=== PATIENT | male | born 2000 | race Caucasian/White ===

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

== ENCOUNTER → 2022-01-12 | Outpatient (CLI) | payer OTHER, SELFPAY | END | disposition home or self-care (01) | PROVIDERS: PCP Family Medicine; Visit Provider Internal Medicine Gastroenterology | DX: K51.90 Ulcerative colitis, unspecified, without complications (principal) | CPT/HCPCS: 36415 ==

== ENCOUNTER → 2025-03-04 | Outpatient (CLI) | payer BC, SELFPAY ==
[2025-03-04 09:47] LABS: Hematocrit 43.9 % (40-54); Hemoglobin 14.7 g/dL (13.0-16.5); Immature Granulocytes Count 0.010 X10^3/uL (0.0-0.0); Mean Corp Hgb Conc 33.5 g/dL (32-36); Mean Corpuscular Volume 92.6 fL (80-94); Mean Platelet Vol. 10.2 fl (6.2-12.0); NRBC Flagged by Analyzer 0 % (0-5); Platelet Count 325 K/mm3 (150-450); RBC Distribution Width CV 12.6 % (11.6-14.6); RBC Distribution Width SD 43.0 fl (35.1-43.9); Red Blood Count 4.74 M/mm3 (4.6-6.2); White Blood Count 6.5 K/mm3 (4.4-11.0)
[2025-03-04 11:02] LABS: AST(SGOT) 16 U/L (<=37); Alanine Aminotransfer ALT/SGPT 13 U/L (<=46); Albumin, Serum 4.5 g/dL (3.5-5.0); Alkaline Phosphatase 96 U/L (40-129); Anion Gap 11 (5-15); BUN 19 mg/dL (4-19); BUN/Creat Ratio 17.3 RATIO (10-20); Calcium,Total 9.4 mg/dL (7.6-11.0); Carbon Dioxide 26.3 mmol/L (21.0-32.0); Chloride 105 mmol/L (98-108); Globulin 2.2 g/dL (2.2-4.2); Glucose 96 mg/dL (70-99); Potassium 4.3 mmol/L (3.3-5.1)
[2025-03-04 11:04] LABS: CRP < 3.00 mg/L (0.0-3.0)
[2025-03-05 12:08] LABS: Anti-Chromatin <0.2 AI (0.0-0.9); Anti-Jo <0.2 AI (0.0-0.9); Anti-dsDNA Ab <1 IU/mL (0-9); SJOGREN'S Anti-SS-A test < 0.2 AI (0.0-0.9); SJOGREN'S Anti-SS-B test < 0.2 AI (0.0-0.9)
== END | disposition home or self-care (01) ==
LOC: LAB 09:05
PROVIDERS: PCP Family Medicine; Referring Provider Student in an Organized Health Care Education/Training Program; Visit Provider Student in an Organized Health Care Education/Training Program
DX: K51.90 Ulcerative colitis, unspecified, without complications (principal); M25.50 Pain in unspecified joint
CPT/HCPCS: 36415; 80053; 85025; 85652; 86140; 86225; 86235

== ENCOUNTER 2025-06-29 11:16 | Day surgery (SDC) | payer BC, MEDICAID, SELFPAY ==
[2025-06-29] VITALS (8 sets, daily range): BP systolic 110–133; BP diastolic 53–70; PULSE 57–78; RESP 14–16; TEMP 36.2–36.6; O2SAT 97–100; BMI 20.9
--- OUTSIDE RECORDS SUMMARY | 2025-06-29 11:39 | XMS RPT_ITS | CCD ---
Author Organization [facility] Care Team Providers Care Supervisor Liquid Yeast Name Role Phone Dr. Jignesh Price Primary Care Provider [phone] Dr. Jignseh Price Referring Provider [phone] Dr. Jesse Gonzalez Attending Provider [phone] Diaz PLANT MAINTENANCE ENGINEER, PLANT MAINTENANCE ENGINEER-C Joan Castillo Attending Provider [phone] Dr. Jignesh Price DO Primary Care Provider [phone] Dr. Jignesh Price DO Referring Provider Nori Aguilera Attending Provider [phone] Nori Aguilera Referring Provider [phone] Jginesh Price Referring Unavailable Jesse Gonzalez Attending Unavailable Jignesh Price Primary Care Unavailable Jignesh Price Primary Care Unavailable Nori Munson Attending Unavailable Nori Munson Referring Unavailable Jignesh Price Primary Care Unavailable Jignesh Price Referring Unavailable Nori Munson Attending Unavailable Medications Current Medications Medication Drug Class(es) Dates Sig (Normalized) Sig (Original) azaTHIOprine 50 mg oral tablet (9 sources) Purine Antimetabolite Start: 08-25-2021 take 150 mg by mouth once daily Azathioprine Active 150 MG PO DAILY 300 August 25, 2021 2:25pm Start: 08-25-2021 End: 09-13-2022 take 1 tablet by mouth once daily Azathioprine 50 mg tablet Discontinued 150 mg PO DAILY 300 1 August 25, 2021 1:00am September 13, 2022 10:32am Start: 04-26-2021 End: 08-25-2021 take 1 tablet by mouth once daily Azathioprine 100 mg tablet Discontinued 100 mg PO DAILY 30 2 May 08, 2021 4:28pm August 25, 2021 2:31pm dicyclomine hydrochloride 20 mg oral tablet (5 sources) Anticholinergic Start: 06-20-2021 End: 10-27-2021 take 1 tablet by mouth three times daily Dicyclomine 20 mg tablet Active 20 mg PO THREE TIMES A DAY 90 3 October 27, 2021 1:33pm FLUoxetine 20 mg oral capsule (5 sources) Serotonin Reuptake Inhibitor Start: 09-13-2022 take 1 capsule by mouth once daily Fluoxetine 20 mg capsule Active 20 mg PO DAILY September 13, 2022 10:33am Start: 04-21-2021 take 40 mg by mouth once daily Fluoxetine Active 40 MG PO DAILY April 21, 2021 8:07am Start: 04-21-2021 End: 09-13-2022 take 2 capsules by mouth once daily Fluoxetine 20 mg capsule Discontinued 40 mg PO DAILY April 21, 2021 12:00am September 13, 2022 10:40am Lactobac 2-Bifido 1-S. Therm (Vsl#3) 112.5 billion cell capsule (3 sources) Start: 04-21-2021 Lactobac 2-Bif kiran 1-S. Therm (Vsl#3) 112.5 billion cell capsule Active 1 CAP PO TWICE A DAY 60 April 21, 2021 9:11am Start: 04-21-2021 End: 09-13-2022 Lactobac 2-Bifido 1-S. Therm (Vsl#3) 112.5 billion cell capsule Discontinued 1 NMA PO TWICE A DAY 60 0 April 21, 2021 12:00am September 13, 2022 10:33am Completed/Discontinued Medications Medication Drug Class(es) Dates Sig (Normalized) Sig (Original) colestipol hydrochloride 1000 mg oral tablet (3 sources) Bile Acid Sequestrant Start: 09-08-2020 End: 04-21-2021 take 1 tablet by mouth once daily Colestipol 1 GM tablet Discontinued 1 g PO DAILY September 08, 2020 1:00am April 21, 2021 8:36am fluconazole 200 mg oral tablet (2 sources) Azole Antifungal Start: 03-30-2022 End: 04-13-2022 take 1 tablet by mouth twice daily Fluconazole 200 mg tablet Discontinued 200 mg PO TWICE A DAY 28 14 0 March 30, 2022 12:00am April 12, 2022 12:00am April 13, 2022 12:03am hyoscyamine sulfate 0.125 mg oral tablet (2 sources) Start: 01-05-2022 End: 09-13-2022 Hyoscyamine Sulfate (Levsin) 0.125 mg tablet Discontinued 0.125 mg PO 2 to 4 times per day as needed for dyspepsia 90 5 January 05, 2022 12:00am September 13, 2022 10:32am inFLIXimab-dyyb 100 mg injection (7 sources) Tumor Necrosis Factor Yazmin Start: 01-23-2022 End: 03-22-2022 Infliximab-Dyyb (Inflectra) 100 mg recon soln Discontinued 395 mg .ROUTE .COMPLEX 1 11 January 24, 2022 9:56am March 22, 2022 12:52pm 395 mg q4wks; 5 mg/kg IV q4 wks Start: 08-22-2021 End: 01-23-2022 Infliximab-Dyyb (Inflectra) 100 mg recon soln Discontinued mg .Route August 22, 2021 1:00am January 23, 2022 1:59pm 5 mg/kg IV q8 wks omeprazole 40 mg delayed release oral capsule (3 sources) Proton Pump Inhibitor Start: 09-06-2020 End: 04-21-2021 take 1 capsule by mouth once daily Omeprazole 40 mg capsule,delayed release(DR/EC) Discontinued 40 mg PO DAILY 60 0 September 06, 2020 1:00am April 21, 2021 8:37am predniSONE 10 mg oral tablet (18 sources) Start: 07-28-2021 End: 09-13-2022 take 1 tablet by mouth once daily Prednisone 10 mg tablet Discontinued 10 mg PO DAILY 100 0 March 20, 2022 1:44pm March 30, 2022 3:00pm taper as discussed Start: 05-31-2021 End: 08-25-2021 take 1 tablet by mouth once daily Prednisone 20 mg tablet Discontinued 20 mg PO DAILY 60 0 June 07, 2021 11:33am August 25, 2021 2:31pm Start: 05-08-2021 End: 05-31-2021 take 60 mg by mouth once daily Prednisone Discontinued 60 MG PO DAILY 120 May 08, 2021 4:26pm May 31, 2021 3:17pm Start: 05-08-2021 End: 05-31-2021 take 3 tablets by mouth once daily Prednisone 20 mg tablet Discontinued 60 mg PO DAILY 120 0 May 08, 2021 12:00am May 31, 2021 3:17pm sucralfate 1000 mg oral tablet (3 sources) Aluminum Complex Start: 09-06-2020 End: 04-21-2021 take 1 tablet by mouth at bedtime Sucralfate (Carafate) 1 gram tablet Discontinued 1 g PO before meals and at bedtime 120 0 September 06, 2020 1:00am April 21, 2021 8:37am 1 ml ustekinumab 90 mg/ml prefilled syringe (8 sources) Interleukin-12 Antagonist, Interleukin-23 Antagonist Start: 05-17-2022 End: 12-04-2022 take 390 mg intravenously once Ustekinumab (Stelara) 130 mg/26 mL solution Discontinued 390 mg .Route ONCE 26 0 May 17, 2022 1:00am December 04, 2022 11:53am Infuse 390mg IV Start: 03-22-2022 End: 03-04-2025 Ustekinumab (Stelara) 90 mg/ mL syringe Discontinued 90 mg SC every 8 weeks 1 February 18, 2023 10:55am March 04, 2025 8:39am vancomycin 125 mg oral capsule (3 sources) Glycopeptide Antibacterial Start: 06-07-2021 End: 08-25-2021 take 1 capsule by mouth four times daily Vancomycin 125 mg capsule Discontinued 125 mg PO EVERY 6 HOURS 56 0 June 07, 2021 1:00am August 25, 2021 2:31pm take 125 mg 4 times per day for 14 days; 2 times per day for 7 days; once daily for 7 days; once every 2-3 days for 2-8 weeks vedolizumab 300 mg injection (3 sources) Integrin Receptor Antagonist Start: 04-26-2021 End: 05-02-2021 Vedolizumab (Entyvio) 300 mg recon soln Discontinued 300 mg .ROUTE .COMPLEX 1 April 26, 2021 12:00am May 02, 2021 3:59pm 300 mg; Administered as a 300 mg flat dose over an approximately 30-minute IV infusion on week 0,2,6 and then every 8 weeks Problems Problem Classification Problem Date Documented Da te Episodic/Chronic Abdominal pain (6 sources) Epigastric pain; Translations: [Epigastric pain] 09-06-2020 Episodic Disorders of teeth and jaw (3 sources) Loss of teeth due to extraction; Translations: [Partial loss of teeth, unspecified cause, unspecified class] 09-06-2020 Episodic Gastrointestinal hemorrhage (3 sources) Hematochezia; Translations: [Melena] 09-06-2020 Episodic Malaise and fatigue (3 sources) Fatigue; Translations: [Other fatigue] 09-06-2020 Episodic Other gastrointestinal disorders (3 sources) Diarrhea; Translations: [Diarrhea, unspecified] 09-06-2020 Episodic Other non-traumatic joint disorders (5 sources) Joint pain; Translations: [Pain in unspecified joint] 07-28-2021 Episodic Other non-traumatic joint disorders (3 sources) Pain in unspecified joint; Translations: [Pain in joint, site unspecified] Onset: 03-04-2025 Episodic Other nutritional; endocrine; and metabolic disorders (3 sources) Intolerance to lactose; Translations: [Lactose intolerance, unspecified] 09-06-2020 Chronic Regional enteritis and ulcerative colitis (9 sources) Ulcerative colitis; Translations: [Ulcerative colitis, unspecified, without complications] Onset: 03-12-2025 Chronic Results Test Name Value Interpretation Reference Range Facility [facility] Panel ANTI-DNA (DS)AB <1 Normal 0-9 [facility] Comment on above: Result Comment: Nega tive <5 Equivocal 5 - 9 Positive >9 Performed By: #### L 101.9900, L501.6710, L3100.5440, L500.4050, L100.0100 #### [facility] [address] [place], [place], [id number] ANTI-SS-A < 0.2 Normal 0.0-0.9 [facility] Comment on above: Performed By: #### L 101.9900, L501.6710, L3100.5440, L500.4050, L100.0100 #### [facility] [address] [place], [place], [id number] ANTI-SS-B < 0.2 Normal 0.0-0.9 [facility] Comment on above: Performed By: #### L 101.9900, L501.6710, L3100.5440, L500.4050, L100.0100 #### [facility] [address] [place], [place], [id number] Absolute lymphocyte countOrd ered By: Nori Munson on 03-04-2025 Lymphocytes Auto (Unsp spec) [#/Vol] 2.86 10*3/uL 0.83-4.51 [facility] Absolute neutrophil countOrd ered By: Nori Munson on 03-04-2025 Neutrophils (Bld) [#/Vol] 2.7 10*3/uL 2.0-7.7 [facility] Anion gap in Serum or Plasma Ordered By: Nori Munson on 03-04-2025 Anion gap [Moles/Vol] 11 mmol/L 5-15 [facility] Automated lymphocyte count a s percentage of total leukocytesOrdered By: Nori Munson on 03-04-2025 Lymphocytes/100 WBC Auto (Unsp spec) 43.9 % High 19-41 [facility] BUN/creatinine ratioOrdered By: Norinighat Munson on 03-04-2025 Urea nitrogen/Creatinine [Mass ratio] 17.3 mg/mg 10-20 [facility] Basophil percentageOrdered B y: Nori Munson on 03-04-2025 Basophils/100 WBC (Bld) 0.9 % 0-1 [facility] Bilirubin, totalOrdered By: Nori Munson on 03-04-2025 Bilirubin [Mass/Vol] 0.73 mg/dL 0.00-1.30 [facility] CBC W/Diff, Automatedon 02-06 Absolute Lymph 2.86 X10 3/uL Normal 0.83-4.51 [facility] Comment on above: Performed By: #### L 101.9900, L501.6710, L3100.5440, L500.4050, L100.0100 #### [facility] [address] [place], [address] Absolute Neut 2.7 X10 3/uL Normal 2.0-7.7 [facility] Comment on above: Performed By: #### L 101.9900, L501.6710, L3100.5440, L500.4050, L100.0100 #### [facility] [address] [place], [address] Basophils/100 WBC (Bld) 0.9 % Normal 0-1 [facility] Comment on above: Performed By: #### L 101.9900, L501.6710, L3100.5440, L500.4050, L100.0100 #### [facility] [address] [place], [address] Eosinophils/100 WBC (Bld) 3.7 % Normal 0-5 [facility] Comment on above: Performed By: #### L 101.9900, L501.6710, L3100.5440, L500.4050, L100.0100 #### [facility] [address] [place], [address] Erythrocyte distribution width (RBC) [Ratio] 12.6 % Normal 11.6-14.6 [facility] Comment on above: Performed By: #### L 101.9900, L501.6710, L3100.5440, L500.4050, L100.0100 #### [facility] [address] [place], [address] Hematocrit (Bld) [Volume fraction] 43.9 % Normal 40-54 [facility] Comment on above: Performed By: #### L 101.9900, L501.6710, L3100.5440, L500.4050, L100.0100 #### [facility] [address] [place], [address] Hemoglobin (Bld) [Mass/Vol] 14.7 g/dL Normal 13.0-16.5 [facility] Comment on above: Performed By: #### L 101.9900, L501.6710, L3100.5440, L500.4050, L100.0100 #### [facility] [address] [place], [address] IG% 0.200 Normal 0.0-0.9 [facility] Comment on above: Result Comment: IG% - Immature Granulocytes (promyelocytes, myelocytes and metamyelocytes) > 1% indicates that a LEFT SHIFT is Present. Performed By: #### L 101.9900, L501.6710, L3100.5440, L500.4050, L100.0100 #### [facility] [address] [place], [address] Lymphocytes/100 WBC (Bld) 43.9 % High 19-41 [facility] Comment on above: Performed By: #### L 101.9900, L501.6710, L3100.5440, L500.4050, L100.0100 #### [facility] [address] [place], [address] MCH (RBC) [Entitic mass] 31.0 pg Normal 27.0-32.0 [facility] Comment on above: Performed By: #### L 101.9900, L501.6710, L3100.5440, L500.4050, L100.0100 #### [facility] [address] [place], [address] MCHC (RBC) [Mass/Vol] 33.5 g/dL Normal 32-36 [facility] Comment on above: Performed By: #### L 101.9900, L501.6710, L3100.5440, L500.4050, L100.0100 #### [facility] [address] [place], [address] MCV (RBC) [Entitic vol] 92.6 fL Normal 80-94 [facility] Comment on above: Performed By: #### L 101.9900, L501.6710, L3100.5440, L500.4050, L100.0100 #### [facility] [address] [place], [address] Monocytes/100 WBC (Bld) 10.7 % High 0-10 [facility] Comment on above: Performed By: #### L 101.9900, L501.6710, L3100.5440, L500.4050, L100.0100 #### [facility] [address] [place], [address] Neutrophils/100 WBC (Bld) 40.6 % Low 47-70 [facility] Comment on above: Performed By: #### L 101.9900, L501.6710, L3100.5440, L500.4050, L100.0100 #### [facility] [address] [place], [address] Nucleated RBC (Bld) [#/Vol] 0 10*3/uL Normal 0-5 [facility] Comment on above: Performed By: #### L 101.9900, L501.6710, L3100.5440, L500.4050, L100.0100 #### [facility] [address] [place], [address] Platelet mean volume (Bld) [Entitic vol] 10.2 fL Normal 6.2-12.0 [facility] Comment on above: Performed By: #### L 101.9900, L501.6710, L3100.5440, L500.4050, L100.0100 #### [facility] [address] [place], [address] Platelets (Bld) [#/Vol] 325 10*3/uL Normal 150-450 [facility] Comment on above: Performed By: #### L 101.9900, L501.6710, L3100.5440, L500.4050, L100.0100 #### [facility] [address] [place], [address] RBC (Bld) [#/Vol] 4.74 10*6/uL Normal 4.6-6.2 [facility] Comment on above: Performed By: #### L 101.9900, L501.6710, L3100.5440, L500.4050, L100.0100 #### [facility] [address] [place], [address] RDW SD 43.0 fl Normal 35.1-43.9 [facility] Comment on above: Performed By: #### L 101.9900, L501.6710, L3100.5440, L500.4050, L100.0100 #### [facility] [address] [place], [address] WBC (Bld) [#/Vol] 6.5 10*3/uL Normal 4.4-11.[address] [facility] Comment on above: Performed By: #### L 101.9900, L501.6710, L3100.5440, L500.4050, L100.0100 #### [facility] [address] [place], [address] CRPon 03-04-2025 C-REACTIVE PROT < 3.00 Normal 0.0-3.0 [facility] Comment on above: Performed By: #### L 101.9900, L501.6710, L3100.5440, L500.4050, L100.0100 #### [facility] [address] [place], [address] Carbon dioxide, total [Moles /volume] in Central venous bloodOrdered By: Nori Munson on 03-04-2025 CO2 [Moles/Vol] 26.3 mmol/L 21.0-32.0 [facility] Chloride assayOrdered By: Hillary Munson on 03-04-2025 Chloride [Moles/Vol] 105 mmol/L 98-108 [facility] Comprehensive Metabolic Prof ilon 03-04-2025 Albumin [Mass/Vol] 4.5 g/dL Normal 3.5-5.[address] [facility] Comment on above: Performed By: #### L 101.9900, L501.6710, L3100.5440, L500.4050, L100.0100 #### [facility] [address] [place], [address] Albumin/Globulin [Mass ratio] 2.1 {ratio} Normal 0.9-2.4 [facility] Comment on above: Performed By: #### L 101.9900, L501.6710, L3100.5440, L500.4050, L100.0100 #### [facility] [address] [place], [address] ALK PHOS 96 U/L Normal 40-129 [facility] Comment on above: Performed By: #### L 101.9900, L501.6710, L3100.5440, L500.4050, L100.0100 #### [facility] [address] [place], [address] ALT [Catalytic activity/Vol] 13 U/L Normal <=46 [facility] Comment on above: Performed By: #### L 101.9900, L501.6710, L3100.5440, L500.4050, L100.0100 #### [facility] [address] [place], [address] AST [Catalytic activity/Vol] 16 U/L Normal <=37 [facility] Comment on above: Performed By: #### L 101.9900, L501.6710, L3100.5440, L500.4050, L100.0100 #### [facility] [address] [place], [address] Bilirubin [Mass/Vol] 0.73 mg/dL Normal 0.00-1.30 [facility] Comment on above: Performed By: #### L 101.9900, L501.6710, L3100.5440, L500.4050, L100.0100 #### [facility] [address] [place], [address] BUN/CRE 17.3 RATIO Normal 10-20 [facility] Comment on above: Performed By: #### L 101.9900, L501.6710, L3100.5440, L500.4050, L100.0100 #### [facility] [address] [place], [address] Calcium [Mass/Vol] 9.4 mg/dL Normal 7.6-11.[address] [facility] Comment on above: Performed By: #### L 101.9900, L501.6710, L3100.5440, L500.4050, L100.0100 #### [facility] [address] [place], [address] Chloride [Moles/Vol] 105 mmol/L Normal 98-108 [facility] Comment on above: Performed By: #### L 101.9900, L501.6710, L3100.5440, L500.4050, L100.0100 #### [facility] [address] [place], [address] CO2 [Moles/Vol] 26.3 mmol/L Normal 21.0-32.0 [facility] Comment on above: Performed By: #### L 101.9900, L501.6710, L3100.5440, L500.4050, L100.0100 #### [facility] [address] [place], [address] Creatinine [Mass/Vol] 1.07 mg/dL Normal 0.70-1.20 [facility] Comment on above: Performed By: #### L 101.9900, L501.6710, L3100.5440, L500.4050, L100.0100 #### [facility] [address] [place], [address] GAP 11 Normal 5-15 [facility] Comment on above: Performed By: #### L 101.9900, L501.6710, L3100.5440, L500.4050, L100.0100 #### [facility] [address] [place], [address] GFR/1.73 sq M.predicted among non-blacks MDRD (S/P/Bld) [Vol rate/Area] 101 mL/min/{1.73_m2} Normal >60 [facility] Comment on above: Result Comment: mL/m in/1.73m2 CKD-EPI Creatinine Equation (2020) Performed By: #### L 101.9900, L501.6710, L3100.5440, L500.4050, L100.0100 #### [facility] [address] [place], [address] Globulin (S) [Mass/Vol] 2.2 g/dL Normal 2.2-4.2 [facility] Comment on above: Performed By: #### L 101.9900, L501.6710, L3100.5440, L500.4050, L100.0100 #### [facility] [address] [place], [address] Glucose [Mass/Vol] 96 mg/dL Normal 70-[address] [facility] Comment on above: Performed By: #### L 101.9900, L501.6710, L3100.5440, L500.4050, L100.0100 #### [facility] [address] [place], [address] Potassium [Moles/Vol] 4.3 mmol/L Normal 3.3-5.1 [facility] Comment on above: Performed By: #### L 101.9900, L501.6710, L3100.5440, L500.4050, L100.0100 #### [facility] [address] [place], [address] Sodium [Moles/Vol] 143 mmol/L Normal 133-[address] [facility] Comment on above: Performed By: #### L 101.9900, L501.6710, L3100.5440, L500.4050, L100.0100 #### [facility] [address] [place], [address] T PROT 6.7 g/dL Normal 5.9-8.4 [facility] Comment on above: Performed By: #### L 101.9900, L501.6710, L3100.5440, L500.4050, L100.0100 #### [facility] [address] [place], [address] Urea nitrogen [Mass/Vol] 19 mg/dL Normal 4-19 [facility] Comment on above: Performed By: #### L 101.9900, L501.6710, L3100.5440, L500.4050, L100.0100 #### [facility] [address] [place], [address] Eosinophil percentageOrdered By: Nori Munson on 03-04-2025 Eosinophils/100 WBC (Bld) 3.7 % 0-5 [facility] Erythrocyte Sed Rateon 03-04 SED RATE < 1 Normal 0-20 [facility] Comment on above: Performed By: #### L 101.9900, L501.6710, L3100.5440, L500.4050, L100.0100 #### [facility] [address] [place], [address] Erythrocyte distribution wid th ratioOrdered By: Nori Munson on 03-04-2025 Erythrocyte distribution width (RBC) [Ratio] 12.6 % 11.6-14.6 [facility] Erythrocyte distribution wid th standard deviationOrdered By: Nori Munson on 03-04-2025 Erythrocyte distribution width (RBC) [Ratio] 43.0 fl 35.1-43.9 [facility] Erythrocyte sedimentation ra teOrdered By: Nori Munson on 03-04-2025 ESR (Bld) [Velocity] mm/h 0-20 [facility] Gastroenterology Visit Repor ton 03-04-2025 Gastroenterology Visit Report [facility] [address] [place] [address] OFFICE VISIT Date of Service: 03/04/25 MR#: [id number] Acct: [id number] Name: TRISHAJEFFERSON WOOD Simon Rep #: [id number] : 2000 Provider: AGBINO Loya Age/Sex: 24/M [place] [facility] [place]: Signed Intake Vital Signs 10/27/21 12:59 Height 6 ft 1 in Intake Visit Reasons: ULCERATIVE COLITIS -NEEDS MEDS Chief Complaint: UC Allergies No Known Allergies Allergy (Verified 03/30/22 14:28) Medications ???Medication ???Instructions ???Recorded ???Confirmed ???Type dicyclomine 20 mg tablet 20 mg PO TID #90 tabs 10/27/21 Rx fluoxetine 20 mg capsule 20 mg PO DAILY 09/13/22 03/04/25 H istory PFSH Medical History Abdominal pain Alcohol use Anxiety Blood in stool Depression Diarrhea Epigastric pain Fatigue Heartburn History of steroid therapy Lactose intolerance Low iron Syncope Vapes nicotine containing substance Surgical History History of esophagogastroduodenoscopy (EGD) Hx of colonoscopy Hx of wisdom tooth extraction Family History Mother Depression Social History Smoking Status: Current some day smoker tobacco type: e-cigarettes second hand exposure: No alcohol intake: current alcohol intake frequency: a few times a week substance use type: does not use caffeine: Yes what type of physical activity do you participate in: running, weight training and additional details: plays Hockey frequency: 5-6 times per week HPI HPI Chief Complaint: UC Details: JEFFERSON RICO, is a 24 M who presents to the office today for follow-up. [facility] established in 2020 for UC. Last OV in 2022 Colonoscopy 9 - Severe (Delcid Score 3) pancolitis ulcerative colitis, worsened since the last examination. Biopsied. - Congested mucosa in the distal ileum. Biopsied OV 03.04.25 patient here today for reestablishment with GI office. Patient was diagnosed with ulcerative colitis of the entire colon in 2020. At that time he was started on Inflectra infusions. Disease was refractory and he was switched to Stelara. About 2 years ago he discontinued his Stelara. He is having loose bowel movements 3-4 times per day. He denies blood in his stool. His main concern is his fatigue and joint pain that he has been having recently. ROS Const Constitutional: Positive for fatigue; No fever(s) or weight change ENT ENT: No difficulty swallowing Cardio Cardiology: Positive for leg pain with exertion Gastro GI: Positive for abdominal pain, bloating, change in bowel habits, diarrhea, heartburn and excessive flatus; No belching, change in stool character, coffee ground emesis, constipation, cramping, difficulty swallowing, feeling full early, incontinent of stools, Vomiting blood/hematemesis, Blood in stool, loose stools, Black,tarry stools, nausea/dyspepsia, pain with swallowing, vomiting or other [place]c Musculoskeletal: Positive for joint pain, back pain, muscle cramps, muscle weakness, stiffness, leg pain at night and leg pain with exertion Skin Skin: No yellowing of the eye or itchy eyes Psych Psychiatric: Positive for anxiety and Positive for depression Endo Endocrine: Positive for fatigue; No weight change Aller/Imm Allergy/Immunologic: No itchy eyes Robin/Lymp Hematologic/Lymphatic: No easy bleeding or easy bruising Exam Const General: cooperative, healthy appearing and comfortable [facility] Head: normal to inspection Eyes General: appearance normal, both eyes and all related structures Neck Neck: normal visual inspection Chest Chest palpation inspection: normal inspection of the chest Resp Effort Inspection: normal respiratory effort Cardio Rate: regular rate Rhythm: regular rhythm GI Inspection: normal to inspection Auscultation: normal bowel sounds Palpation: soft and nontender Assessment and Plan Assessment and Plan (1) Ulcerative colitis: Status: Chronic Plan: Jefferson is a 24-year-old male patient here today for reestablishment with the GI office. Patient was diagnosed with desai ulcerative colitis in 2020 during a colonoscopy. At that time he was experiencing extreme urgency and loose bowel movements daily. Patient was started on Remicade however was refractory and was then put on Stelara. Patient discontinued his Stelara about 2 years ago. He has been having worsening symptoms including fatigue, joint pain and loose stool daily. Patient would like to go back on biologic therapy. Patient will need to go undergo repeat colonoscopy, CBC, CMP, ESR, CRP and stool calprotectin prior to induction of Stelara. Patient was scheduled for colonoscopy t (more content not included)... Normal [facility] Glomerular filtration rate ( GFR) estimation/1.73 sq m using serum, plasma, or whole bOrdered By: Nori Munson on 03-04-2025 GFR/1.73 sq M.predicted among non-blacks MDRD (S/P/Bld) [Vol rate/Area] 101 mL/min/{1.73_m2} >60 [facility] Comment on above: mL/min/1.73m2 CKD-EP I Creatinine Equation (2020) Hematocrit Auto (Bld) [Volum e fraction]Ordered By: Nori Munson on 03-04-2025 Hematocrit (Bld) [Volume fraction] 43.9 % 40-54 [facility] Hemoglobin measurementOrdere d By: Nori Munson on 03-04-2025 Hemoglobin (Bld) [Mass/Vol] 14.7 g/dL 13.0-16.5 [facility] Immature granulocytes/100 WB C Auto (Bld)Ordered By: Nori Munson on 03-04-2025 Immature granulocytes/100 WBC (Bld) 0.200 % 0.0-0.9 [facility] Comment on above: IG% - Immature Granu locytes (promyelocytes, myelocytes and metamyelocytes) > 1% indicates that a LEFT SHIFT is Present. Laboratory - Chemistry and C hemistry - challengeOrdered By: Nori Munson on 03-04-2025 AST [Catalytic activity/Vol] 16 U/L <38 [facility] MCV (mean corpuscular volume ) determinationOrdered By: Nori Munson on 03-04-2025 MCV (RBC) [Entitic vol] 92.6 fL 80-94 [facility] Mean corpuscular hemoglobin (MCH) determinationOrdered By: Nori Munson on 03-04-2025 MCH (RBC) [Entitic mass] 31.0 pg 27.0-32.0 [facility] Mean corpuscular hemoglobin concentration (MCHC) determinationOrdered By: Nori Munson on 03-04-2025 MCHC (RBC) [Mass/Vol] 33.5 g/dL 32-36 [facility] Mean platelet volume determi nationOrdered By: Nori Munson on 03-04-2025 Platelet mean volume (Bld) [Entitic vol] 10.2 fL 6.2-12.0 [facility] Monocyte percentageOrdered B y: Nori Munson on 03-04-2025 Monocytes/100 WBC (Bld) 10.7 % High 0-10 [facility] Neutrophil percentageOrdered By: Nori Munson on 03-04-2025 Neutrophils/100 WBC (Bld) 40.6 % Low 47-70 [facility] Nucleated red blood cell per centageOrdered By: Nori Munson on 03-04-2025 Nucleated RBC/100 WBC (Bld) [Ratio] 0 % 0-5 [facility] Platelet countOrdered By: Hillary Munson on 03-04-2025 Platelets (Bld) [#/Vol] 325 10*3/uL 150-450 [facility] Potassium measurement (mass/ volume)Ordered By: Nori Munson on 03-04-2025 Potassium (Unsp spec) [Mass/Vol] 4.3 mmol/L 3.3-5.1 [facility] RBC Auto (Bld) [#/Vol]Ordere d By: Nori Munson on 03-04-2025 RBC (Bld) [#/Vol] 4.74 10*6/uL 4.6-6.2 [facility] Serum DNA double strand anti body assay (units/volume)Ordered By: Nori Munson on 03-04-2025 DNA double strand Ab Qn (S) [IU]/mL 0-9 [facility] Comment on above: Negative <5 Equivoca l 5 - 9 Positive >9 Serum Scl-70 antibody assay (units/volume)Ordered By: Nori Munson on 03-04-2025 SCL-70 extractable nuclear Ab Qn (S) TNP [facility] Comment on above: Test not performed SCL-70 extractable nuclear Ab Qn (S) <0.2 AI 0.0-0.9 [facility] Comment on above: Previous reported re sult: TNP AIEdited by: CORBIN on 03/05/25:1208 AMENDED REPORT 03/05/25 1208 ANTISCLER previously reported as: Test not performed Serum creatinine measurement (mass/volume)Ordered By: Nori Munson on 03-04-2025 Creatinine [Mass/Vol] 1.07 mg/dL 0.70-1.20 [facility] Serum globulin measurementOr dered By: Nori Munson on 03-04-2025 Globulin (S) [Mass/Vol] 2.2 g/dL 2.2-4.2 [facility] Serum glucose measurement (m ass/volume)Ordered By: Nori Munson on 03-04-2025 Glucose [Mass/Vol] 96 mg/dL 70-[address] [facility] Serum or plasma C reactive p rotein measurement (mass/volume)Ordered By: Nori Munson on 03-04-2025 CRP [Mass/Vol] mg/L 0.0-3.0 [facility] Serum or plasma alanine pa otransferase (ALT) measurementOrdered By: Nori Munson on 03-04-2025 ALT [Catalytic activity/Vol] 13 U/L <47 [facility] Serum or plasma albumin andriy urement (mass/volume)Ordered By: Nori Munson on 03-04-2025 Albumin [Mass/Vol] 4.5 g/dL 3.5-5.[address] [facility] Serum or plasma albumin/glob ulin mass ratioOrdered By: Nori Munson on 03-04-2025 Albumin/Globulin [Mass ratio] 2.1 {ratio} 0.9-2.4 [facility] Serum or plasma alkaline chun sphatase measurementOrdered By: Nori Munson on 03-04-2025 ALP [Catalytic activity/Vol] 96 U/L 40-129 [facility] Serum or plasma calcium andriy urement (mass/volume)Ordered By: Nori Munson on 03-04-2025 Calcium [Mass/Vol] 9.4 mg/dL 7.6-11.[address] [facility] Serum or plasma urea nitroge n measurement (mass/volume)Ordered By: Nori Munson on 03-04-2025 Urea nitrogen [Mass/Vol] 19 mg/dL 4-19 [facility] Sodium levelOrdered By: Carrie donnell Munson on 03-04-2025 Sodium [Moles/Vol] 143 mmol/L 133-[address] [facility] Total proteinOrdered By: Nicole Munson on 03-04-2025 Protein [Mass/Vol] 6.7 g/dL 5.9-8.[address] [facility] White blood cell (WBC) count Ordered By: Nori Munson on 03-04-2025 WBC (Bld) [#/Vol] 6.5 10*3/uL 4.4-11.[address] [facility] Absolute lymphocyte counton 10-09-2021 Lymphocytes Auto (Unsp spec) [#/Vol] 1.14 10*3/uL 0.83-4.51 [facility] Work Phone: Basophil percentageon 2021 Basophils/100 WBC (Bld) 0.2 % 0-1 [facility] Work Phone: Eosinophils/100 WBC (Bld) 0.0 % 0-5 [facility] Work Phone: Neutrophils (Bld) [#/Vol] 7.0 10*3/uL 2.0-7.7 [facility] Work Phone: Neutrophils/100 WBC (Bld) 84.2 % 47-70 [facility] Work Phone: WBC (Bld) [#/Vol] 8.3 10*3/uL 4.4-11.[address] [facility] Work Phone: Blood erythrocytes count (nu mber/volume)on 10-09-2021 RBC (Bld) [#/Vol] 4.67 10*6/uL 4.6-6.2 [facility] Work Phone: Blood hemoglobin measurement (mass/volume)on 10-09-2021 Hemoglobin (Bld) [Mass/Vol] 14.5 g/dL 13.0-16.5 [facility] Work Phone: Blood lymphocytes/100 leukoc yteson 10-09-2021 Lymphocytes/100 WBC (Bld) 13.7 % 19-41 [facility] Work Phone: Blood monocytes/100 leukocyt eson 10-09-2021 Monocytes/100 WBC (Bld) 1.7 % 0-10 [facility] Work Phone: Blood platelet mean volumeon 10-09-2021 Platelet mean volume (Bld) [Entitic vol] 9.9 fL 6.2-12.0 [facility] Work Phone: Determination of erythrocyte mean corpuscular volume (MCV)on 10-09-2021 MCV (RBC) [Entitic vol] 91.4 fL 80-94 [facility] Work Phone: Erythrocyte sedimentation ra venkatesh 10-09-2021 ESR (Bld) [Velocity] 9 mm/h 0-20 [facility] Work Phone: Hematocrit Auto (Bld) [Volum e fraction]on 10-09-2021 Hematocrit (Bld) [Volume fraction] 42.7 % 40-54 [facility] Work Phone: Laboratory - Hematology and Cell countson 10-09-2021 Erythrocyte distribution width (RBC) [Entitic vol] 44.7 fL 35.1-43.9 [facility] Work Phone: Erythrocyte distribution width (RBC) [Ratio] 13.2 % 11.6-14.6 [facility] Work Phone: Immature granulocytes/100 WBC (Bld) 0.200 % 0.0-0.9 [facility] Work Phone: Comment on above: IG% - Immature Granu locytes (promyelocytes, myelocytes and metamyelocytes) > 1% indicates that a LEFT SHIFT is Present. MCH (RBC) [Entitic mass] 31.0 pg 27.0-32.0 [facility] Work Phone: Nucleated RBC/100 WBC (Bld) [Ratio] 0 % 0-5 [facility] Work Phone: MCHC Auto (RBC) [Mass/Vol]on 10-09-2021 MCHC (RBC) [Mass/Vol] 34.0 g/dL 32-36 [facility] Work Phone: Platelets bldon 10-09-2021 Platelets (Bld) [#/Vol] 471 10*3/uL 150-450 [facility] Work Phone: Serum or plasma C reactive p rotein measurement (mass/volume)on 10-09-2021 CRP [Mass/Vol] 5.90 mg/L 0.0-3.0 [facility] Work Phone: Comment on above: C-Reactive Protein ( CRP) provides useful information for thediagnosis, therapy and monitoring of inflammatory processesand associated diseases. For the evaluation of Relative Riskfor Cardiovascular Disease, a High Sensitivity CRP (HSCRP)should be ordered. Erythrocyte sedimentation ra venkatesh 08-25-2021 ESR (Bld) [Velocity] 4 mm/h 0-20 [facility] Work Phone: Serum or plasma C reactive p rotein measurement (mass/volume)on 08-25-2021 CRP [Mass/Vol] mg/L 0.0-3.0 [facility] Work Phone: Comment on above: C-Reactive Protein ( CRP) provides useful information for thediagnosis, therapy and monitoring of inflammatory processesand associated diseases. For the evaluation of Relative Riskfor Cardiovascular Disease, a High Sensitivity CRP (HSCRP)should be ordered. Erythrocyte sedimentation ra venkatesh 06-23-2021 ESR (Bld) [Velocity] 9 mm/h 0-20 [facility] Work Phone: Serum or plasma C reactive p rotein measurement (mass/volume)on 06-23-2021 CRP [Mass/Vol] 3.34 mg/L 0.0-3.0 [facility] Work Phone: Comment on above: C-Reactive Protein ( CRP) provides useful information for thediagnosis, therapy and monitoring of inflammatory processesand associated diseases. For the evaluation of Relative Riskfor Cardiovascular Disease, a High Sensitivity CRP (HSCRP)should be ordered. Vital Signs Date Time Vital Sign Value Performing Clinician Faci lity 08-25-2021 12:37-0500 Body height 185.[address] Jignesh Price Work Phone: [facility] Work Phone: 08-25-2021 12:37-0500 Body mass index (BMI) [Ratio] 21.9 kg/m2 Dr. Jignesh Price Work Phone: [facility] Work Phone: 08-25-2021 12:37-0500 Body weight 75.[address] Jignesh Price Work Phone: [facility] Work Phone: Encounters Encounter Date Encounter Type Care Provider Facility Start: 04-02-2025 ambulatory Jignesh Price Facility: [facility] Start: 03-04-2025 End: 03-04-2025 Patient encounter procedure Nori LLOYD -[facility] Work Phone: Start: 03-04-2025 End: 03-04-[address] Jignesh Price DO Work Phone: -[facility] Start: 03-04-2025 End: 03-04-2025 ambulatory Jignesh Price Facility:[facility] Start: 10-09-2021 End: 10-09-[address] Jignesh Price Work Phone: [facility] Start: 08-25-2021 End: 08-25-[address] Jignesh Price Work Phone: [facility] Start: 07-28-2021 End: 07-28-[address] Jignesh Price Work Phone: [facility] Start: 06-23-[address] Jignesh Price Work Phone: [facility] Start: 06-23-2021 End: 06-23-[address] Jignesh Price Work Phone: [facility] Procedures Date Procedure Procedure Detail Performing Clinician Start: 03-04-2025 Antibody to centrome re measurement Dr. Jignesh Price DO Work Phone: Comment on above: Test not performed Previous reported re sult: TNP AIEdited by: CORBIN on 03/05/25:1208 AMENDED REPORT 03/05/25 1208 ANTI-CENT B previously reported as: Test not performed Start: 03-04-2025 Antibody to extracta ble nuclear antigen measurement Dr. Jignesh Price DO Work Phone: Comment on above: Test not performed Previous reported re sult: TNP AIEdited by: CORBIN on 03/05/25:1208 AMENDED REPORT 03/05/25 1208 ROWELL Ab previously reported as: Test not performed Start: 03-04-2025 Antibody to SHWETHA-[address] Jignesh Price DO Work Phone: Comment on above: Test not performed Previous reported re sult: TNP AIEdited by: CORBIN on 03/05/25:1208 AMENDED REPORT 03/05/25 1208 ANTI-SHWETHA previously reported as: Test not performed Start: 03-04-2025 Antibody to lupus La protein measurement Dr. Jignesh Price DO Work Phone: Start: 03-04-2025 Antibody to SS-A measurement Dr. Jignesh Price DO Work Phone: Start: 03-04-[address] Jignesh Price DO Work Phone: Comment on above: Test not performed Previous reported re sult: TNP AIEdited by: CORBIN on 03/05/25:1208 AMENDED REPORT 03/05/25 1208 ANTICHROMATIN previously reported as: Test not performed Start: 03-04-2025 CAKE WR[address]PER antibody measurement Dr. Jignesh Price DO Work Phone: Comment on above: Test not performed Previous reported re sult: TNP AIEdited by: CORBIN on 03/05/25:1208 AMENDED REPORT 03/05/25 1208 CAKE WRAPPER Ab previously reported as: Test not performed Plan of Treatment Date Care Activity Detail Author Start: 03-04-2025 C reactive protein [ Mass/volume] in Serum or Plasma [facility] Start: 03-04-2025 CBC W Auto Different ial panel - Blood [facility] Start: 03-04-2025 Comprehensive metabo lic 2000 panel - Serum or Plasma [facility] Start: 03-04-2025 Erythrocyte sedimentation rate [facility] Start: 03-04-2025 [facility] Alanine aminotransfe rase [Enzymatic activity/volume] in Serum or Plasma [facility] Albumin [Mass/volume ] in Serum or Plasma [facility] Alkaline phosphatase [Enzymatic activity/volume] in Serum or Plasma [facility] Anion gap in Serum or Plasma [facility] Antibody to lupus La protein measurement [facility] Antibody to SS-A measurement [facility] Bilirubin, total measurement [facility] BUN/Creatinine ratio [facility] Calcium [Mass/volume ] in Serum or Plasma [facility] Carbon dioxide, tota l [Moles/volume] in Central venous blood [facility] Colonoscopy [facility] Creatinine [Mass/vol ume] in Serum or Plasma [facility] DNA double strand Ab [Units/volume] in Serum [facility] Erythrocyte mean cor puscular volume determination [facility] Glucose [Mass/volume ] in Serum or Plasma [facility] Hematocrit [Volume F raction] of Blood [facility] Hemoglobin [Mass/volume] in Blood [facility] In-vitro immunologic test [facility] Leukocytes [#/volume] in Blood [facility] Mean corpuscular hem oglobin concentration determination [facility] Mean corpuscular hem oglobin determination [facility] Measurement of renal function [facility] Neutrophil count [facility] Neutrophil percent d ifferential count [facility] Platelets [#/volume] in Blood [facility] Potassium measurement [facility] Protein measurement [facility] Red blood cell count [facility] Red cell distributio n width determination [facility] Serum chloride measurement [facility] Sodium measurement [facility] Total protein measurement [facility] Urea nitrogen [Mass/ volume] in Serum or Plasma [facility] Payers Date Payer Category Payer Private Health Insurance [id number] 2025 Self-pay [id number] 2025 Unknown [id number] Unknown [id number] Unknown SELF PAY INSURANCE [id number] Unknown [id number] Unknown [id number] Unknown [id number] Social History Date Type Detail Facility Start: [facility] Work Phone: Start: 09-08-2020 Non-smoker [facility] Start: 2000 Sex Assigned At Male [facility] Start: 09-13-2022 [facility] Current [facility] day smoker [facility] Evaluation note 03-04-2025 Note Date & Type Note Facility 03-04-2025 Evaluation note Diagnosis Onset Date Resolution Arthralgia acute March 04 8:27am Ulcerative colitis chronic March 04, 2025 8:27am [facility] Work Phone: Progress note 03-04-2025 Note Date & Type Note Facility 03-04-2025 Progress note [facility] Evaluation note Note Date & Type Note Facility Evaluation note Diagnosis Onset Date Ulcerative colitis acute Arthralgia acute Ulcerative colitis acute Arthralgia acute Ulcerative colitis acute [facility] Work Phone: Evaluation note Note Date & Type Note Facility Evaluation note Diagnosis Onset Date Resolution Arthralgia acute March 04 025 8:27am Ulcerative colitis chronic March 04, 2025 8:27am [facility] Work Phone: Progress note Note Date & Type Note Facility Progress note Note Date/Time March 04, 2025 9:12am [facility] [address] [place] [address] OFFICE VISIT Date of Service: 03/04/25 MR#: [id number] Acct: [id number] Name: TRISHAJEFFERSON WOOD Simon Rep # : [id number] : 2000 Provider: GABINO Loya Age/Sex: 24/M [place] [facility] [place]: Signed Intake Vital Signs 10/27/21 12:59 Height 6 ft 1 in Intake Visit Reasons: ULCERATIVE COLITIS -NEEDS MEDS Chief Complaint: UC Allergies No Known Allergies Allergy (Verified 03/30/22 14:28) Medications ?Medication ?Instructions ?Recorded ?Confirmed ?Type dicyclomine 20 mg tablet 20 mg PO TID #90 tabs 03/04/25 Rx fluoxetine 20 mg capsule 20 mg PO DAILY 09/13/2202/06 History PFSH Medical History Abdominal pain Alcohol use Anxiety Blood in stool Depression Diarrhea Epigastric pain Fatigue Heartburn History of steroid therapy Lactose intolerance Low iron Syncope Vapes nicotine containing substance Surgical History History of esophagogastroduodenoscopy (EGD) Hx of colonoscopy Hx of wisdom tooth extraction Family History Mother Depression Social History Smoking Status: Current some day smoker tobacco type: e-cigarettes second hand exposure: No alcohol intake: current alcohol intake frequency: a few times a week substance use type: does not use caffeine: Yes what type of physical activity do you participate in: running, weight training and additional details: plays Hockey frequency: 5-6 times per week HPI HPI Chief Complaint: UC Details: JEFFERSON RICO, is a 24 M who presents to the office today for follow-up. [facility] established in 2020 for UC. Last OV in 2022 Colonoscopy 03.14.22 - Severe (Delcid Score 3) pancolitis ulcerative colitis, worsened since the last examination. Biopsied. - Congested mucosa in the distal ileum. Biopsied OV 03.04.25 patient here today for reestablishment with GI office. Patient was diagnosed with ulcerative colitis of the entire colon in 2020. At that time he was started on Inflectra infusions. Disease was refractory and he was switched to Stelara. About 2 years ago he discontinued his Stelara. He is having loose bowel movements 3-4 times per day. He denies blood in his stool. His main concern is his fatigue and joint pain that he has been having recently. ROS Const Constitutional: Positive for fatigue; No fever(s) or weight change ENT ENT: No difficulty swallowing Cardio Cardiology: Positive for leg pain with exertion Gastro GI: Positive for abdominal pain, bloating, change in bowel habits, diarrhea, heartburn and excessive flatus; No belching, change in stool character, coffee ground emesis, constipation, cramping, difficulty swallowing, feeling full early, incontinent of stools, Vomiting blood/hematemesis, Blood in stool, loose stools, Black,tarry stools, nausea/dyspepsia, pain with swallowing, vomiting or other Musc Musculoskeletal: Positive for joint pain, back pain, muscle cramps, muscle weakness, stiffness, leg pain at night and leg pain with exertion Skin Skin: No yellowing of the eye or itchy eyes Psych Psychiatric: Positive for anxiety and Positive for depression Endo Endocrine: Positive for fatigue; No weight change Aller/Imm Allergy/Immunologic: No itchy eyes Robin/Lymp Hematologic/Lymphatic: No easy bleeding or easy bruising Exam Const General: cooperative, healthy appearing and comfortable [facility] Head: normal to inspection Eyes General: appearance normal, both eyes and all related structures Neck Neck: normal visual inspection Chest Chest palpation & inspection: normal inspection of the chest Resp Effort & Inspection: normal respiratory effort Cardio Rate: regular rate Rhythm: regular rhythm GI Inspection: normal to inspection Auscultation: normal bowel sounds Palpation: soft and nontender Assessment and Plan Assessment and Plan (1) Ulcerative colitis: Status: Chronic Plan: Jefferson is a 24-year-old male patient here today for reestablishment with the GIoffice. Patient was diagnosed with desai ulcerative colitis in 2020 during a colonoscopy. At that time he was experiencing extreme urgency and loose bowel movements daily. Patient was started on Remicade however was refractory and wasthen put on Stelara. Patient discontinued his Stelara about 2 years ago. He has been having worsening symptoms including fatigue, joint pain and loose stooldaily. Patient would like to go back on biologic therapy. Patient will need togo undergo repeat colonoscopy, CBC, CMP, ESR, CRP and stool calprotectin prior to induction of Stelara. Patient was scheduled for colonoscopy today. - Blood work - Stool calprotectin - Colonoscopy - Pending results restart Stelara (2) Arthralgia: Status: Acute Orders: Orders CBC W/Diff, Automated Today K51.90 - Ulcerative colitis, unspecified, without complications, M25.50 - Pain in unspecified joint Comprehensive Metabolic Profil Today K51.90 - Ulcerative colitis, unspecified, without complications, M25.50 - Pain in unspecified joint Erythrocyte Sed Rate Today K51.90 - Ulcerative colitis, unspecified, without complications, M25.50 - Pain in unspecified joint CRP Today K51.90 - Ulcerative colitis, unspecified, without complications, M25.50 - Pain in unspecified joint Calprotectin, Stool Today K51.90 - Ulcerative colitis, unspecified, without complications, M25.50 - Pain in unspecified joint ROBIN Comprehensive Panel Today K51.90 - Ulcerative colitis, unspecified, withoutcomplications, M25.50 - Pain in unspecified joint Quantiferon TB-Gold+ Today K51.90 - Ulcerative colitis, unspecified, without complications, M25.50 - Pain in unspecified joint Coding Level of Care Code Off vis,est,level 4 Diagnoses Ulcerative colitis K51.90 Arthralgia M25.50 03/04/25 0912 <Electronically signed by Nori LLOYD> Date _ Nori LLOYD Cosigner Signature: Date (if applicable) CC: ~ [facility] Work Phone: Reason for referral (narrative) Note Date & Type Note Facility Reason for referral (narrative) No reason for referral information available [facility] Work Phone: Chief Complaint and Reason for Visit Chief Complaint f/u endo E ORDER 1 M FU 1 MON FU INT LABS EORDER Reason for Visit Ulcerative colitis Arthralgia Ulcerative colitis Arthralgia Ulcerative colitis Chief Complaint Admit Date ULCERATIVE COLITIS -NEEDS MEDS March 042024 8:27am INT LABS March 04, 2025 9: 01am Reason for Visit Admit Date Arthralgia March 04, 2025 8: 27am Ulcerative colitis March 04, 2025 8: 27am Advance Directives No Advanced Directives Records Found Advance Directive Response Recorded Date/ Time Living Will No May 31, 2 021 3:17pm Power of Hide Grader No May 31, 2021 3:17pm Summary Purpose Family History No Family History Records Found Additional Source Comments Goals (unrecognized section and content) Goals may be documented in a n alternate sectionGoals may be documented in an alternate sectionGoals may be documented in an alternate section Care Teams (unrecognized sec tion and content) Team Status: Active Member Role/Relationship Status Dates Dr. Jignesh Price DO Family Provider Active Dr. Jignesh Price DO Primary Care Provider Active Team Status: Inactive Member Role/Relationship Status Dates Dr. Jignesh Price DO Primary Care Provider Active Start: March 04, 2025 End: March 04, 2025 Dr. Jignesh Price DO Referring Provider Active Start: March 04, 2025 End: March 04, 2025 GABINO Loya Attending Provider Active Start: March 04, 2025 End: March 04, 2025 Team Status: Active Member Role/Relationship Status Dates Dr. Jignesh Price DO Primary Care Provider Active Start: March 04, 2025 GABINO Loya Attending Provider Active Start: March 04, 2025 GABINO Loya Referring Provider Active Start: March 04, 2025 Team Status: Active Member Role/Relationship Status Dates Dr. Jignesh Price DO Primary Care Provider Active Team Status: Inactive Member Role/Relationship Status Dates Dr. Jignesh Price DO Primary Care Provider Active Start: March 04, 2025 End: March 04, 2025 GABINO Loya Attending Provider Active Start: March 04, 2025 End: March 04, 2025 GABINO Loya Referring Provider Active Start: March 04, 2025 End: March 04, 2025 (unrecognized sect ion and content) No Status Records Found INFORMATION SOURCE (unrecogn ized section and content) DATE CREATED AUTHOR 04/01/2025 [facility] FOR RECORDS PERTAINING TO PATIENTS WHO ARE OR HAVE BEEN ENROLLED IN A CHEMICAL DEPENDENCY/SUBSTANCEABUSE PROGRAM, SOME INFORMATION MAY BE OMITTED. This clinical summary was aggregated from multiple sources. Caution should be exercised in using it in the provision of clinical care. This summary normalizes information from multiple sources, and as a consequence, information in this document may materially change the coding, format and clinical context of patient data. In addition, data may be omitted in some cases. CLINICAL DECISIONS SHOULD BE BASED ON THE PRIMARY CLINICAL RECORDS. [facility] [employer] provides no warranty or guarantee of the accuracy or completeness of information in this document.
[2025-06-29] MEDS: Lactated Ringers 1,000 ML 15 ML IV (11:46)
--- NOTE | 2025-06-29 12:16 | PCM.PRE.AN2 ---
ASA Classification* ASA Classification ASA Classification: 2 Assessment & Plan Anesthesia* Anesthesia Assessment Anesthesia Assessment: Discussed sedation and/or anesthesia options, risks, benefits, and alternatives with patient/parents/legal guardian/POA. Questions invited. The patient/parents/legal guardian/POA seems to understand and agrees to proceed with anesthesia plan. Reviewed the physical assessment, medical history, allergy history and patient home medications list prior to surgery/procedure/anesthetic and documented any changes. Performed airway and anesthesia risk assessments. Anesthesia Type Anesthesia Type: MAC History Source History Obtained from:: Patient and Chart Anesthesia Focused Assessment* Temperature: 97.6 F Pulse Rate: 61 Blood Pressure: 133/68 Respiratory Rate: 16 Pulse Ox: 100 Oxygen Delivery Method: Room Air Airway Assessment Mouth opens: >3 cm Mallampati Score: II Teeth Condition: Intact Neck Range of motion (ROM): Full ROM Labs Anesthesia Preop lab: CBC WBC, (4.4-11.0) 6.5 K/mm3 03/04/25, 09:08 RBC, (4.6-6.2) 4.74 M/mm3 03/04/25, 09:08 Hgb, (13.0-16.5) 14.7 g/dL 03/04/25, 09:08 Hct, (40-54) 43.9 % 03/04/25, 09:08 Plt Count, (150-450) 325 K/mm3 03/04/25, 09:08 CHEMISTRY Potassium, (3.3-5.1) 4.3 mmol/L 03/04/25, 09:08 Sodium, (133-145) 143 mmol/L 03/04/25, 09:08 BUN, (4-19) 19 mg/dL 03/04/25, 09:08 Creatinine, (0.70-1.20) 1.07 mg/dL 03/04/25, 09:08 Glucose, (70-99) 96 mg/dL 03/04/25, 09:08 TSH, (0.358-3.74) 0.36 uIU/mL 08/12/20, 11:20 COAG Pre-Assessment Diagnosis/Proposed Procedure Planned Operative Procedure(s): COLONOSCOPY Anesthesia History Anesthesia History - store receiving clerk: Anesthesia History - store receiving clerk Hx Hospitalization No 06/25/25 13:17 Any Problems With Anesthesia No 06/25/25 13:17 Cholinesterase deficiency No 06/25/25 13:17 You/Your Family Experience No 06/25/25 13:17 fever (hyperthermia) with Relationship Recent Exposure to Contagious No 06/29/25 11:37 Disease Does patient have nerve No 06/25/25 13:17 stimulator Patient instructed to have device shut off --Does patient have Pacemaker No 06/29/25 11:37 or ICD? When Was Last Pacemaker Check QUESTION #4 FULL TEXT: You/Your Family Experience fever (hyperthermia) with Anesthesia Last Oral Intake Last Oral intake: Last Oral Intake NPO since 00:00 06/29/25 11:37 Meds taken in AM with sips of No 06/29/25 11:37 water? Meds patient instructed to take am of surgery PONV PONV - store receiving clerk: PONV - store receiving clerk Female No 06/25/25 13:17 HX of Motion Sickness Yes 06/25/25 13:17 HX of N/V After Surgery No 06/25/25 13:17 Non-Smoker No 06/25/25 13:17 Duration of Surgery greater No 06/25/25 13:17 than 60 minutes Number of Risk Factors 1 06/25/25 13:17 PONV Score Low Risk 06/25/25 13:17 Height & Weight Height & Weight: Anesthesia: Height & Weight Height 6 ft 1 in 06/29/25 11:37 Weight: 72 kg 06/29/25 11:37 Body Mass Index (BMI) 20.9 06/29/25 11:37 Respiratory Assessment Respiratory Assessment - store receiving clerk: Respiratory Tract Infection Hx - store receiving clerk Hx Respiratory Tract Infection No 06/25/25 13:17 STOP Sleep Apnea STOP Sleep Apnea - store receiving clerk: STOP Sleep Apnea - store receiving clerk Hx Hypertension No 06/25/25 13:17 Hx Sleep Apnea No 06/25/25 13:17 CPAP BIPAP Do you snore loudly (louder No 06/25/25 13:17 than talking or can be heard Do you often feel tired/ No 06/25/25 13:17 fatigued/ sleepy during daytime? Has anyone observed you stop No 06/25/25 13:17 breathing during sleep? STOP Results Negative 06/25/25 13:17 QUESTION #5 FULL TEXT : Do you snore loudly (louder than talking or can be heard through closed doors)? 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 Specify any problems Hx of Preganancy in last 3 N/A 06/25/25 13:17 Months Nurse Filling Out Transfusion MGRIFFITH 06/25/25 13:17 & Questions: Date: 06/25/25 06/25/25 13:17 Time: 13:19 06/25/25 13:17 Patient unable to answer at this time (ie. confused, unrespo /Reproduction History /Reproductive History - store receiving clerk: /Reproductive Hx- store receiving clerk Hx Now No 06/25/25 13:17 Gestational Age (in weeks): EDC: Hx Hx Para Hx Section SAB No 06/25/25 13:17 Does the father of the baby or his family experience fever w Father of the baby Malignant Hypertension history comment Active Medications Active Medications: Current Medications Generic Name Dose Route Start Last Admin Trade Name Freq PRN Reason Stop Dose Admin Lactated Ringer's 1,000 mls @ 15 mls/hr 06/29/25 11:30 06/29/25 11:46 IV 15 mls/hr .Q48H ASHWIN Administration PFSH Medical History Marijuana use Hx of ulcerative colitis History of IBS Smoker Anxiety Alcohol use History of steroid therapy Low iron Syncope Heartburn Vapes nicotine containing substance Depression Lactose intolerance Fatigue Blood in stool Diarrhea Epigastric pain Abdominal pain Home Medications ?Medication ?Instructions ?Recorded ?Last Taken ?Type NK 06/25/25 Unknown History Allergy/AdvReac Type Severity Reaction Status Date / Time No Known Allergies Allergy Verified 06/29/25 11:33 Family History Mother Depression Surgical History (Updated 06/29/25 @ 12:[address] Antwon Snyder MD) History of esophagogastroduodenoscopy (EGD) Hx of colonoscopy Hx of wisdom tooth extraction Social History Smoking Status: Current some day smoker tobacco type: e-cigarettes second hand exposure: No alcohol intake: current alcohol intake frequency: a few times a week substance use type: does not use caffeine: Yes what type of physical activity do you participate in: running, weight training and additional details: plays Hockey frequency: 5-6 times per week Review of Systems (Anesthesia) ROS Narrative System reviewed and no additional complaints, except as documented.
--- NOTE | 2025-06-29 12:30 | COLBX_PTH ---
PATIENT: JEFFERSON RICO Jr. LOC: EN U#:[id number] AGE/SX: 25/M ROOM: RE06/29/[address]: Dr. Jesse Gonzalez DO : 2000 BED: DIS: 06/29/2025 SPEC #: [id number] RECD: 06/29/25 14:38 STATUS: LUIS DANIEL REQ #: [id number] OMARI: 06/29/25 12:[address]: Jesse Gonzalez DEPT: SURGICAL PATHOLOGY RECD BY: Javier Ortiz ENTERED: 06/29/25 15:06 SP TYPE: COLON BX OTHR DR: Dr. Jignesh Price DO Tissues: A - Ileum, NOS B - Cecum, NOS C - COLON BIOPSY D - COLON BIOPSY E - Rectum, NOS Procedures: Surgery Specimen Level IV HEADER OPERATION: Colonoscopy, biopsy PRE-OP DIAGNOSIS: Ulcerative colitis TISSUE SUBMITTED: A. Terminal ileum, B. Cecum, C. Right sided colon, D. Left sided colon, E. Rectum MICROSCOPIC DIAGNOSIS A. Small intestine, terminal ileum, biopsy: - Prominent mucosal lymphoid tissue, favor reactive - see note. Note: A reactive process is favored. However, if clinical concern for a lymphoproliferative disorder is high, please contact the Laboratory to request additional evaluation. B. Colon, cecum, biopsy: - Mildly active chronic colitis. - Negative for dysplasia. C. Colon, right, biopsy: - Mildly active chronic colitis. - Negative for dysplasia. D. Colon, left, biopsy: - Moderately active chronic colitis. - Negative for dysplasia. E. Rectum, biopsy: - Mildly active chronic colitis. - Negative for dysplasia. MICROSCOPIC DESCRIPTION Slides are reviewed. GROSS DESCRIPTION A. Received is one container labeled with the patient name and designated Terminal ileum. The specimen consists of two irregular fragments of olson tissue that measure 0.2 and 0.4 cm. The specimen is totally submitted in one cassette. B. Received is one container labeled with the patient name and designated Cecum. The specimen consists of three irregular fragments of olson tissue that measure <0.1 cm to 0.2 cm. Smallest fragment may not survive processing. The specimen is totally submitted in one cassette. C. Received is one container labeled with the patient name and designated Right sided colon. The specimen consists of multiple irregular fragments of olson tissue that measure <0.1 cm to 0.2 cm. Entirety of the specimen may not survive processing. The specimen is totally submitted in one cassette. D. Received is one container labeled with the patient name and designated Left sided colon. The specimen consists of multiple irregular fragments of olson tissue that in aggregate measure 1.0 x 0.6 x 0.1 cm. The specimen is totally submitted in one cassette. E. Received is one container labeled with the patient name and designated Rectum. The specimen consists of two irregular fragments of olson tissue that measure 0.3 cm to 0.5 cm. The specimen is totally submitted in one cassette. [place] 06/29/2025 CPT:79216d6
--- NOTE | 2025-06-29 12:33 | PCM.HP.STD ---
HPI - General General Date of Admission: 06/29/25 Date of Service: 06/29/25 Chief Complaint: Ulcerative colitis HPI Narrative JEFFERSON RICO, is a 25 M who presents [ Chief Complaint: [facility] established in 2020 for UC. Last OV in 2022 Colonoscopy 03.14.22 - Severe (Delcid Score 3) pancolitis ulcerative colitis, worsened since the last examination. Biopsied. - Congested mucosa in the distal ileum. Biopsied OV 03.04.25 patient here today for reestablishment with GI office. Patient was diagnosed with ulcerative colitis of the entire colon in 2020. At that time he was started on Inflectra infusions. Disease was refractory and he was switched to Stelara. About 2 years ago he discontinued his Stelara. He is having loose bowel movements 3-4 times per day. He denies blood in his stool. His main concern is his fatigue and joint pain that he has been having recently. ] [facility] Medical History Marijuana use Hx of ulcerative colitis History of IBS Smoker Anxiety Alcohol use History of steroid therapy Low iron Syncope Heartburn Vapes nicotine containing substance Depression Lactose intolerance Fatigue Blood in stool Diarrhea Epigastric pain Abdominal pain Home Medications ?Medication ?Instructions ?Recorded ?Last Taken ?Type NK 06/25/25 Unknown History Allergy/AdvReac Type Severity Reaction Status Date / Time No Known Allergies Allergy Verified 06/29/25 11:33 Family History Mother Depression Surgical History History of esophagogastroduodenoscopy (EGD) Hx of colonoscopy Hx of wisdom tooth extraction Social History Smoking Status: Current some day smoker tobacco type: e-cigarettes second hand exposure: No alcohol intake: current alcohol intake frequency: a few times a week substance use type: does not use caffeine: Yes what type of physical activity do you participate in: running, weight training and additional details: plays Hockey frequency: 5-6 times per week ROS Constitutional Constitutional: Denies fatigue, fever(s), poor appetite, weight gain or weight loss Gastrointestinal Gastrointestinal: Denies belching, bloating, change in bowel habits, change in stool character, chewing difficulty, coffee ground emesis, constipation, cramping, diarrhea, dyspepsia, dysphagia, early satiety, excessive flatus, fecal incontinence, heartburn, hematemesis, hematochezia, hemorrhoids, loose stools, melena, nausea, odynophagia, rectal bleeding, tenesmus, vomiting or weight changes Patient's Goals Of Care . What would you like to achieve or improve as a result of your hospital stay?: none Vital Signs Vital Signs Vital Signs: 06/29/25 11:37 06/29/25 11:37 06/29/25 11:37 Temperature 97.6 F L Temperature Source Temporal Pulse Rate 61 Respiratory Rate 16 Respiratory Pattern Normal Blood Pressure 133/68 H Blood Pressure Mean 89 Blood Pressure Source Monitor Blood Pressure Position Semi-Fowlers Blood Pressure Location Right Arm Baseline BP 133/68 Pulse Ox 100 Oxygen Delivery Method Room Air 06/29/25 12:21 Temperature 97.6 F L Temperature Source Pulse Rate 61 Respiratory Rate 16 Respiratory Pattern Blood Pressure 133/68 H Blood Pressure Mean Blood Pressure Source Blood Pressure Position Blood Pressure Location Baseline BP Pulse Ox 100 Oxygen Delivery Method Room Air Weight Weight: 158 lb 11.725 oz Body Mass Index (BMI) 20.9 Physical Exam Const alert, oriented x3, no apparent distress and healthy appearing General Appearance: cooperative GI normal to inspection, nondistended, normoactive bowel sounds, soft to palpation, non-tender and non-distended Percussion: normal to percussion Rectal Exam: deferred Assessment & Plan Assessment/Plan (1) Ulcerative colitis: PLAN: Assessment and Plan Assessment and Plan (1) Ulcerative colitis: Status: Chronic Plan: Jefferson is a 24-year-old male patient here today for reestablishment with the GI office. Patient was diagnosed with desai ulcerative colitis in 2020 during a colonoscopy. At that time he was experiencing extreme urgency and loose bowel movements daily. Patient was started on Remicade however was refractory and was then put on Stelara. Patient discontinued his Stelara about 2 years ago. He has been having worsening symptoms including fatigue, joint pain and loose stool daily. Patient would like to go back on biologic therapy. Patient will need to go undergo repeat colonoscopy, CBC, CMP, ESR, CRP and stool calprotectin prior to induction of Stelara. Patient was scheduled for colonoscopy today. - Blood work - Stool calprotectin - Colonoscopy - Pending results restart Stelara (2) Arthralgia: Status: Acute Orders: Orders CBC W/Diff, Automated Today K51.90 - Ulcerative colitis, unspecified, without complications, M25.50 - Pain in unspecified joint Comprehensive Metabolic Profil Today K51.90 - Ulcerative colitis, unspecified, without complications, M25.50 - Pain in unspecified joint Erythrocyte Sed Rate Today K51.90 - Ulcerative colitis, unspecified, without complications, M25.50 - Pain in unspecified joint CRP Today K51.90 - Ulcerative colitis, unspecified, without complications, M25.50 - Pain in unspecified joint Calprotectin, Stool Today K51.90 - Ulcerative colitis, unspecified, without complications, M25.50 - Pain in unspecified joint ROBIN Comprehensive Panel Today K51.90 - Ulcerative colitis, unspecified, without complications, M25.50 - Pain in unspecified joint Quantiferon TB-Gold+ Today K51.90 - Ulcerative colitis, unspecified, without complications, M25.50 - Pain in unspecified joint
--- NOTE | 2025-06-29 13:29 | PCM.POST.ANE ---
Anesthesia: Postop Eval I Current Vital Signs Temperature: 97.8 F Pulse Rate: 78 Blood Pressure: 111/53 Respiratory Rate: 16 Pulse Ox: 98 Oxygen Delivery Method: Room Air Assessment Airway patent: Yes Spontaneous unlabored respirations: Yes Mental status: Awake and Calm nausea: No Vomiting: No Anesthesia Complication: No Fluid Hydration Crystalloid volume administer (ml): 500 Total IV fluid infused: 500 Progress Note Anesthesia document: Postop Eval 1 completed: Yes
--- NOTE | 2025-06-29 13:34 | OP.COLON_ITS ---
Patient Name: Cash Ernandez Procedure Date: 06/29/2025 12:57 PM Date of : 2000 Age: 25 Procedure: Colonoscopy Indications: Suspected chronic ulcerative pancolitis Providers: Jesse Gonzalez DO Referring MD: Jignesh Price Medicines: Monitored Anesthesia Care Patient Profile: This is a 25 year old male. Refer to note in patient chart for documentation of history and physical. Last Colonoscopy: 3 years ago. Complications: No immediate complications. Procedure: Pre-Anesthesia Assessment: - Prior to the procedure, a History and Physical was performed, and patient medications and allergies were reviewed. The patient is competent. The risks and benefits of the procedure and the sedation options and risks were discussed with the patient. All questions were answered and informed consent was obtained. Patient identification and proposed procedure were verified by the physician in the pre-procedure area. Mental Status Examination: alert and oriented. Airway Examination: normal oropharyngeal airway and neck mobility. Respiratory Examination: clear to auscultation. CV Examination: normal. Prophylactic Antibiotics: The patient does not require prophylactic antibiotics. Prior Anticoagulants: The patient has taken no anticoagulant or antiplatelet agents. ASA Grade Assessment: II - A patient with mild systemic disease. After reviewing the risks and benefits, the patient was deemed in satisfactory condition to undergo the procedure. The anesthesia plan was to use monitored anesthesia care (MAC). Immediately prior to administration of medications, the patient was re-assessed for adequacy to receive sedatives. The heart rate, respiratory rate, oxygen saturations, blood pressure, adequacy of pulmonary ventilation, and response to care were monitored throughout the procedure. The physical status of the patient was re-assessed after the procedure. After I obtained informed consent, the scope was passed under direct vision. Throughout the procedure, the patient's blood pressure, pulse, and oxygen saturations were monitored continuously. The Colonoscope was introduced through the anus and advanced to the terminal ileum. The colonoscopy was performed without difficulty. The patient tolerated the procedure well. The quality of the bowel preparation was adequate. The terminal ileum, ileocecal valve, appendiceal orifice, and rectum were photographed. Scope In: 1:06:35 PM Scope Withdrawal Time 0 hours 12 minutes 15 seconds Scope Out: 1:21:55 PM Total Procedure Duration Time 0 hours 15 minutes 20 seconds Findings: The perianal and digital rectal examinations were normal. Inflammation characterized by congestion (edema), erosions, erythema and granularity was found in a continuous and circumferential pattern from the rectum to the cecum. The transverse colon was spared. The inflammation was moderate in severity, and when compared to previous examinations, the findings are worsened. Biopsies were taken with a cold forceps for histology. Verification of patient identification for the specimen was done. Estimated blood loss was minimal. Impression: - Pancolitis. Inflammation was found from the rectum to the cecum. This was moderate in severity, worsened compared to previous examinations. Biopsied. Recommendation: - Discharge patient to home. - Resume previous diet. - Continue present medications. - Await pathology results. - Repeat colonoscopy in 1 year for surveillance. Procedure Code(s): --- Professional --- 43976, Colonoscopy, flexible; with biopsy, single or multiple CPT copyright 2021 [employer]. All rights reserved. The codes documented in this report are preliminary and upon development geologist review may be revised to meet current compliance requirements. Jesse Gonzalez DO 06/29/2025 1:34:21 PM This report has been signed electronically. Number of Addenda: 0 Note Initiated On: 06/29/2025 12:57 PM
--- NOTE | 2025-06-29 13:34 | OP.PROVAT_ITS ---
06/29/2025 Jignesh Price [address] [place] [address] Re : Colonoscopy procedure for Cash Ernandez Dear Dr. Price This procedure was performed on Sunday, June 29, 2025. My impressions and recommendations are as follows: Impressions : - Pancolitis. Inflammation was found from the rectum to the cecum. This was moderate in severity, worsened compared to previous examinations. Biopsied. Recommendations : - Discharge patient to home. - Resume previous diet. - Continue present medications. - Await pathology results. - Repeat colonoscopy in 1 year for surveillance. My findings are described in the full procedure note, which is enclosed. If I can be of further assistance, please feel free to contact me at . Sincerely, Jesse Friend, 06/29/2025 1:34:21 PM This report has been signed electronically.
--- NOTE | 2025-06-29 18:16 | PCM.POSTANE2 ---
Anesthesia Postop Eval I Sum Postop Eval Completion status Anesthesia document: Postop Eval 1 completed: Yes Anesthesia Postop Eval I Summary Anesthesia Postop Eval I Summary: Anesthesia Postop Eval I: Assessment Summary Airway patent Yes 06/29/25 13:31 [email or web address] Spontaneous unlabored Yes 06/29/25 13:31 [email or web address] respirations Mental status Awake,Calm 06/29/25 13:31 [email or web address] nausea No 06/29/25 13:31 [email or web address] Vomiting No 06/29/25 13:31 [email or web address] Anesthesia Postop Eval I: Fluid Summary Crystalloid volume administer 500 06/29/25 13:31 [email or web address] (ml) Colloids volume administered ( ml) Blood Product volume administered (ml) Total IV fluid infused 500 06/29/25 13:31 [email or web address] Anesthesia Postop Eval I: Summary Notes Anesthesia Complication No 06/29/25 13:31 [email or web address] Anesthesia Complication Comment: Post-operative progress note Anesthesia: Postop Eval II Evaluation Mental status: Awake and Calm Pain Level: 0 nausea: No Vomiting: No Complications Anesthesia Complication: No
== END 2025-06-29 14:07 | disposition home or self-care (01) ==
LOC: EN 11:17 → AC 11:19
PROVIDERS: PCP Family Medicine; Referring Provider Family Medicine; Visit Provider Internal Medicine Gastroenterology
PROC: 0DJD8ZZ Inspection of Lower Intestinal Tract, Via Natural or Artificial Opening Endoscopic (ICD-10-PCS; CPT 45378; principal; 2025-06-29 12:25)
DX: K51.00 Ulcerative (chronic) pancolitis without complications (principal); F17.290 Nicotine dependence, other tobacco product, uncomplicated
CPT/HCPCS: 45380; 88305; J2405